=== PATIENT | female | born 1970 | race African-American/Black ===

== ENCOUNTER 2017-06-23 23:03 | Emergency (ER) | payer SELFPAY ==
[2017-06-23 23:31] LABS: URINE HCG POC HCG NEGATIVE (Negative)
[2017-06-23 23:38] LABS: ADD MAN DIFF? NO
[2017-06-23 23:41] LABS: BASO % 1 % (0-3); EOS # 0.2 x10^3/uL (0.0-0.7); EOS % 3 % (0-3); HEMATOCRIT 29.7 % (36.0-47.0); HEMOGLOBIN 9.3 g/dL (12.0-15.5); LYMPH # 1.7 x10^3/uL (1.0-4.8); LYMPH % 25 % (24-48); MEAN CORPUSCULAR HEMOGLOBIN 23 pg (25-35); MEAN CORPUSCULAR HGB CONC 31 g/dL (31-37); MEAN CORPUSCULAR VOLUME 72 fL (79-100); MONO # 0.7 x10^3/uL (0.0-1.1); MONO % 10 % (0-9); NEUT # 4.2 x10^3uL (1.8-7.7); NEUT % 61 % (31-73); PLATELET COUNT 284 x10^3/uL (140-400); RED BLOOD COUNT 4.13 x10^6/uL (3.50-5.40); RED CELL DISTRIBUTION WIDTH 20.1 % (11.5-14.5); WHITE BLOOD COUNT 6.8 x10^3/uL (4.0-11.0)
[2017-06-23 23:52] LABS: ANION GAP 6 (6-14); BLOOD UREA NITROGEN 14 mg/dL (7-20); CALCIUM 9.4 mg/dL (8.5-10.1); CARBON DIOXIDE 33 mmol/L (21-32); CHLORIDE 100 mmol/L (98-107); CREATININE 0.9 mg/dL (0.6-1.0); GFR 80.9; GLUCOSE 112 mg/dL (70-99); POTASSIUM 3.4 mmol/L (3.5-5.1); SODIUM 139 mmol/L (136-145)
[2017-06-23 23:57] LABS: D-DIMER 1.47 ug/mlFEU (0.00-0.50)
[2017-06-24] MEDS: IV NORMAL SALINE 1000ML BAG 1,000 ML IV (00:05)
[2017-06-24 00:06] LABS: NT-PRO BNP 13 pg/mL (0-124)
[2017-06-24 00:07] LABS: THYROID STIM HORMONE (TSH) 1.525 uIU/mL (0.358-3.74)
[2017-06-24 00:14] LABS: TROPONINI < 0.017 ng/mL (0.000-0.055)
[2017-06-24] MEDS ORDERED: CONTRAST GIVEN MC (00:30)
[2017-06-24] MEDS: IOHEXOL 300 MG/ML 100ML VIAL. IV (01:10)
[2017-06-24 02:50] LABS: PLT ESTIMATE ADEQUATE (ADEQUATE); POLYCHROMASIA SLIGHT
[2017-06-24 02:51] LABS: ANISOCYTOSIS MOD; HYPOCHROMIA MOD; MICROCYTOSIS MOD
[2017-06-24 02:52] LABS: BURR CELLS OCC; OVALOCYTES OCC; SCHISTOCYTES OCC
[2017-06-24] MEDS: AZITHROMYCIN 250 MG TABLET. PO (03:15)
== END 2017-06-24 03:18 | disposition home or self-care (01) ==
LOC: ER 06-24 03:18
DX: J18.9 Pneumonia, unspecified organism (principal); I10 Essential (primary) hypertension
CPT/HCPCS: 36415; 71046; 71275; 80048; 81025; 83880; 84443; 84484; 85025; 85379; 93005; 96360; 96361; 99285-25; J7030; Q0144; Q9967

== ENCOUNTER 2017-07-23 20:24 | Emergency (ER) | payer BC | END 2017-07-23 20:45 | disposition home or self-care (01) | LOC: ER 20:45 | DX: R05 Cough (principal); J02.9 Acute pharyngitis, unspecified; R50.9 Fever, unspecified; I10 Essential (primary) hypertension | CPT/HCPCS: 99283 ==

== ENCOUNTER → 2019-05-22 | Outpatient (CLI) | payer OTHER ==
[2017-07-23 20:25] VITALS: BP 143/73
[~2019-05-22] MED LIST: AZIT250T PO; GADOTERATE 7.5 MMOL/15ML VIAL. IVP ONE; GUAI118L20 PO; HYDR-2145 PO; LEVO750T31 PO; LOSA25TA PO; PRED-220 PO
--- NOTE | 2019-05-24 06:14 | KCIC ---
MRI pelvis with and without contrast dated 05/22/2019. No comparison available. CLINICAL INDICATION: Fibroid uterus. Preprocedural planning for embolization. TECHNIQUE: Routine multiplanar multisequence imaging of the pelvis performed with and without the administration of 18 cc Dotarem. FINDINGS: Uterus is enlarged measuring 13.6 x 8.0 x 11.5 cm. There are numerous T1 and T2 hypointense mass lesions scattered throughout the uterine myometrium. The largest lesion is located at the anterior uterine corpora measuring 6.6 cm, to the right of midline. Mass lesions appear to abut and distort the endometrium. There is a submucosal lesion at the uterine fundus that measures 1.5 cm. There is also a subserosal lesion at the posterior fundus that measures 3.4 cm. Right ovary measures 2.8 x 1.8 x 2.2 cm. Simple cyst or dominant follicle at right ovary measuring 1.8 cm. Left ovary measures 3.0 x 1.5 x 2.6 cm. No left adnexal mass or free fluid. Cervix unremarkable. There are scattered diverticula within the distal colon. No localized adenopathy. There is a fatty mass at the left groin that extends along the margin of the iliopsoas muscle that measures approximately 4.8 x 4.4 x 18.4 cm, consistent with lipoma. IMPRESSION: 1. Enlarged myomatous uterus as detailed above. 2. Small simple cyst or dominant follicle at the right ovary measuring 1.8 cm. 3. Large fatty mass along the margin of the left iliopsoas muscle, consistent with lipoma. 4. Diverticulosis. Electronically signed by: Helder Yanes MD (05/24/2019 6:12 AM) [id number]
== END | disposition home or self-care (01) ==
LOC: KCIC MRI 15:12
PROVIDERS: ATTEND Obstetrics & Gynecology
DX: N85.2 Hypertrophy of uterus (principal); D17.79 Benign lipomatous neoplasm of other sites; N85.9 Noninflammatory disorder of uterus, unspecified; K57.30 Diverticulosis of large intestine without perforation or abscess without bleeding
CPT/HCPCS: 72197; A9575

== ENCOUNTER → 2020-06-14 | Outpatient (CLI) | payer OTHER ==
[2017-07-23 20:25] VITALS: BP 143/73
[~2020-06-14] MED LIST changes: +AMLO-186 PO; -GADOTERATE 7.5 MMOL/15ML VIAL. IVP ONE; +LOSA100T14 PO
[2020-06-14 13:46] LABS: BASO # 0.1 x10^3/uL (0.0-0.2); BASO % 1 % (0-3); EOS # 0.1 x10^3/uL (0.0-0.7); EOS % 2 % (0-3); HEMATOCRIT 35.7 % (36.0-47.0); HEMOGLOBIN 11.9 g/dL (12.0-15.5); LYMPH % 33 % (24-48); MEAN CORPUSCULAR HEMOGLOBIN 28 pg (25-35); MEAN CORPUSCULAR HGB CONC 33 g/dL (31-37); MEAN CORPUSCULAR VOLUME 84 fL (79-100); MONO # 0.6 x10^3/uL (0.0-1.1); MONO % 10 % (0-9); NEUT # 3.3 x10^3/uL (1.8-7.7); NEUT % 54 % (31-73); PLATELET COUNT 229 x10^3/uL (140-400); RED BLOOD COUNT 4.24 x10^6/uL (3.50-5.40); RED CELL DISTRIBUTION WIDTH 16.6 % (11.5-14.5); WHITE BLOOD COUNT 6.1 x10^3/uL (4.0-11.0)
== END ==
LOC: SURGPAT 13:06
PROVIDERS: ATTEND Obstetrics & Gynecology
DX: Z01.818 Encounter for other preprocedural examination (principal)
CPT/HCPCS: 36415; 85025

== ENCOUNTER → 2020-06-18 | Outpatient (CLI) | payer OTHER ==
[2017-07-23 20:25] VITALS: BP 143/73
== END ==
LOC: LAB 08:28
PROVIDERS: ATTEND Obstetrics & Gynecology
DX: Z01.812 Encounter for preprocedural laboratory examination (principal); Z20.822 Contact with and (suspected) exposure to COVID-19
CPT/HCPCS: U0003

== ENCOUNTER 2020-06-20 06:06 | Day surgery (SDC) | payer OTHER ==
[~2020-06-20 06:06] MED LIST changes: +HYDROmorphone 2 MG/ML VIAL IVP PRN; +IV RINGERS,LACTATED 1000ML 1,000 ML IV SCH; +MORPHINE SULFATE 2 MG/ML VIAL. IVP PRN; +PROCHLORPERAZINE 10 MG/2 ML VIAL. IVP PRN; +fentaNYL PF VIAL 100 MCG/2 ML VIAL IVP PRN
[2020-06-20] MEDS ORDERED: fentaNYL PF VIAL 100 MCG/2 ML VIAL ONE (07:03)
[2020-06-20] MEDS ORDERED: PROPOFOL 10 MG/ML (20ML) VIAL. IV ONE (07:03)
[2020-06-20] MEDS ORDERED: LIDOCAINE 2% PF 5 ML VIAL. ONE (07:03)
[2020-06-20] MEDS ORDERED: VASOPRESSIN 20 UNIT/ML VIAL. ONE (07:09)
[2020-06-20] MEDS ORDERED: SEVOFLURANE 31 TO 60 MINUTES. IH ONE (07:58)
[2020-06-20] MEDS ORDERED: ONDANSETRON PF 4 MG/2 ML VIAL. ONE (07:58)
[2020-06-20] MEDS ORDERED: DEXAMETHASONE SOD PHOS 20 MG/5 ML VIAL. ONE (07:58)
[2020-06-20] MEDS ORDERED: PHENYLEPHRINE in 0.9% NACL PF 1 MG/10 ML SYRINGE. IV ONE (08:30)
[2020-06-20] MEDS ORDERED: SILVER NITRATE STICK TP ONE (09:09)
--- NOTE | 2020-06-20 09:37 | PDOC ---
BRIEF OPERATIVE NOTE Date: Jun 20, 2020 Pre-Op Diagnosis endometrial masses with known submucosal fibroids Post-Op Diagnosis same Procedure Performed operative hysteroscopy using myosure; myosure reach with myomectomy Surgeon Dr. Kalpana Palacios Anesthesiologist Dr. Conteh Anesthesia Type: General Blood Loss 20cc IV Fluid see anesthesia records Urine Output straight cath prior Specimens Obtained submucosal fibroids Findings 8cm at least 3 distinct fibroids 3cm right fundal, at least 5cm posterior fibroid and smaller left fundal Complications none cut time 25:49 sec, changed myosure reach one time due to dull blade (no XL here yet) def approx 1200cc Operative Note [id number] KALPANA PALACIOS MD Jun 20, 2020 09:37
[2020-06-20] MEDS ORDERED: SIMETHICONE 80 MG TAB.CHEW PO PRN (09:45)
[2020-06-20] MEDS ORDERED: NALOXONE 0.4 MG/ML VIAL. IV PRN (09:45)
[2020-06-20] MEDS ORDERED: diphenhydrAMINE HCL 25 MG CAPSULE PO PRN (09:45)
[2020-06-20] MEDS ORDERED: diphenhydrAMINE 50 MG/ML VIAL IV PRN (09:45)
[2020-06-20] MEDS ORDERED: HYDROcodone/APAP 5/325MG 1 TAB TABLET PO PRN (09:45)
[2020-06-20] MEDS ORDERED: CALCIUM CARBONATE 500 MG TAB.CHEW PO PRN (09:45)
[2020-06-20] MEDS ORDERED: 0.9 % SODIUM CHLORIDE 10 ML DISP.SYRIN. IV PRN (09:45)
[2020-06-20] MEDS ORDERED: MAG HYDROX/ALUMINUM HYD/SIMETH 30 ML ORAL.SUSP PO PRN (09:45)
[2020-06-20] MEDS ORDERED: HYDROcodone/APAP 5/325MG 1 TAB TABLET PO ONE ×2 (10:00)
[2020-06-20 10:10] VITALS: BP 139/80
--- NOTE | 2020-06-20 10:13 | OP ---
DATE OF SURGERY: 06/20/2020 PREOPERATIVE DIAGNOSES: A known fibroid uterus with large submucosal fibroids after a uterine artery embolization was done with continued vaginal bleeding and endometrial masses. POSTOPERATIVE DIAGNOSES: A known fibroid uterus with large submucosal fibroids after a uterine artery embolization was done with continued vaginal bleeding and endometrial masses with at least 3 submucosal fibroids. FINDINGS: She had a uterus that sounded to 8 cm. She had a large, at least 5-cm posterior submucosal fibroid. A 2-3 cm on the right fundal area and a smaller one on the right fundal area and then a little bit of tissue otherwise, but mainly these 3 submucosal fibroids, otherwise normal-appearing cavity. PROCEDURE: Operative hysteroscopy using the MyoSure fluid collection system and the MyoSure REACH was used to do the myomectomy hysteroscopically. SURGEON: Maya Palacios MD FISH BONING MACHINE FEEDER: OR personnel. ANESTHESIOLOGIST: Miguelangel Conteh MD ANESTHESIA: General. ESTIMATED BLOOD LOSS: 20 mL. URINE OUTPUT: Straight cath prior to procedure. INTRAVENOUS FLUIDS: Please see anesthesia records. SPECIMENS: Were submucosal fibroids, again finding 8 cm uterus, at least 3 distinct fibroids, 3 cm right fundal, at least 5 cm posterior fibroid and smaller left fundal. COMPLICATIONS: None. Cut time was 25 minutes and 49 seconds. We had to change the MyoSure REACH once because the blade got dull because they did not have the MyoSure XL here yet and the deficit actually reached greater than a couple thousand; however, about 1200 is what was calculated between all the in's and out's and there was a couple thousand on the floor and blankets and on shoes because it popped off at one point and then she was so dilated, it was squirting outside the bag, so it was not collecting everything and a lot of it was going on the floor, but nothing was bad. DESCRIPTION OF PROCEDURE: This patient was taken to the operating room where general anesthesia was placed. The patient was placed in the dorsal lithotomy position in Prieto stirrups. The patient's vagina was prepped and draped in the normal sterile fashion and a straight cath urine was done prior to my arrival. Upon my arrival, a timeout was performed. Once everyone agreed on the patient, the site, the procedure, the procedure was initiated. A weighted speculum was placed in the patient's vagina. A single-tooth tenaculum was used to grasp the anterior lip of the cervix. She was dilated to 6-7 with the Hegar dilators. She sounded to 8 cm. At this point, the MyoSure scope was primed. Once it passed the prime, it was placed in with the above findings. The MyoSure REACH was the only blade they had here. Unfortunately, we did not stock the XL, so the MyoSure REACH was obtained and the procedure was initiated. Initially, I went for the right cornua one. It was actually bigger than what I initially thought. It was probably 3-4 cm at least; that one came off easily, then went for the larger 5 cm posterior one and about detention through 13-14 minutes into it, it started getting dull and when we found out there was no XL, we did call the rep and he did say we may need to change; we changed. I was able to complete that one and then get the smaller one as well. This was all of course done under direct visualization. There were no complications. It just took a while because we were using the REACH and had to change out containers and change the device, but other than that, it was fine. So, once it was done, it was removed. All the pathology is being sent for permanent pathology. The tenaculum was removed. The left tenaculum ___ with excellent results and once it quit, the weighted speculum was removed and the procedure was ended. She was awakened from anesthesia and brought to recovery room in stable condition. MAYA PALACIOS MD DR: CHANDNI/oscar JOB#: [id number] / [id number]
--- NOTE | 2020-06-24 16:20 | PATHOLOGY ---
[facility] Accession Number: [id number] . 01 Material submitted: . uterus - SUBMUCOSAL FIBROID . 01 Clinical history: . HYSTEROSCOPY WITH MYOSURE FIBROIDS, SUBMUCOSA, INT . 02 Diagnosis: Uterine curettings, submucosal fibroid: - Multiple segments of infarcted and hyalinized leiomyomas, showing focal calcification. - Several segments of endometrium showing chronic endometritis. . (JP:mm; 06/24/2020) COUNT INCLUDES THE [facility] 06/24/2020 1340 Local . 02 Comment: There is no evidence of malignancy. . (JPM:mml; 06/24/2020) . 02 Electronically signed: . Noe Sykes MD, Pathologist NPI- [id number] . 01 Gross description: . The specimen is received in formalin, labeled "Manpreet Gleason, submucosal fibroid". Received is a 6.3 x 5.8 x 1.9 cm aggregate of white-mckeon tissue. The specimen is committed representatively in cassettes A1 through A4. ([facility]; 06/21/2020) QA/QA 06/21/2020 1319 Local . 02 Pathologist provided ICD-10: D25.9, N71.1 . 02 CPT . 750439 Specimen Comment: A courtesy copy of this report has been sent to [phone], [phone] Specimen Comment: [id number] Specimen Comment: Report sent to / DR FRAZIER Performed at: 01 [facility] [address], [place], [place] [id number] MD Gabriel Cam MD Phone: [phone] Performed at: 02 [facility] [address] [place], [place] [id number] MD Noe Sykes MD Phone: [phone]
== END 2020-06-20 10:50 | disposition home or self-care (01) ==
LOC: SURG 06:06
PROVIDERS: ATTEND Obstetrics & Gynecology
DX: D25.0 Submucous leiomyoma of uterus (principal); N93.9 Abnormal uterine and vaginal bleeding, unspecified; N71.1 Chronic inflammatory disease of uterus; I10 Essential (primary) hypertension; Z79.899 Other long term (current) drug therapy; Z98.890 Other specified postprocedural states
CPT/HCPCS: 58561; 81025; A4930; J1100; J2370; J2405; J2704; J3010; J3490